=== PATIENT | female | born 1975 | race American Indian/Alaskan Native ===

== ENCOUNTER 2018-03-20 12:29 | Emergency (ER) | payer MEDICAID, OTHER ==
[2018-03-20 12:51] VITALS: RESP 18; TEMP 98.6; O2SAT 100
--- NOTE | 2018-03-20 12:56 | ED PDOC ---
Arrival/HPI - General Chief Complaint: Back Pain Time Seen by Provider: 03/20/18 12:37 Historian: Patient - History of Present Illness Narrative History of Present Illness (Text): 03/20/18 12:49 42 year old female, with no significant past medical history, presents to the emergency department complaining of left-sided upper back pain that began 2 days ago. She states the pain started after extensive house work at home. Patient reports the pain is worse with movement and the pain feels like a spasm at her upper back. Patient reports a one week history of chest pain that, but now reports is relieved. She described the chest pain as a pinching to her chest. Patient denies any history of hypertension, diabetes, or tobacco use. Patient denies any fever, chills, current chest pain, shortness of breath, nausea, vomiting, diarrhea, urinary symptoms, neck pain, weakness, tingling, numbness, headache, dizziness, or any other complaints. Time/Duration: Other (2 days) Symptom Onset: Sudden Symptom Course: Unchanged Quality: Other (spasm) Activities at Onset: Light Context: Home Past Medical History - Provider Review Nursing Documentation Reviewed: Yes - Psychiatric Hx Substance Use: No - Anesthesia Hx Anesthesia: No Hx Anesthesia Reactions: No Hx Malignant Hyperthermia: No Family/Social History - Physician Review Nursing Documentation Reviewed: Yes Family/Social History: No Known Family HX Smoking Status: Former Smoker Hx Alcohol Use: Yes Frequency of alcohol use: Socially Hx Substance Use: No Allergies/Home Meds Allergies/Adverse Reactions: Allergies No Known Allergies Allergy (Verified 03/20/18 12:33) Review of Systems - Physician Review All systems were reviewed & negative as marked: Yes - Review of Systems Constitutional: absent: Fevers, Other (Chills) Respiratory: absent: SOB Cardiovascular: Chest Pain (one week history of chest pinch like pain that has resolved ) Gastrointestinal: absent: Diarrhea, Nausea, Vomiting Genitourinary Female: absent: Dysuria, Frequency, Hematuria Musculoskeletal: Back Pain. absent: Neck Pain Neurological: absent: Headache, Dizziness, Focal Weakness, Other (tingling or numbness) Physical Exam Vital Signs Reviewed: Yes Vital Signs Temp Pulse Resp BP Pulse Ox 03/20/18 16:19 64 18 150/92 H 100 03/20/18 15:29 64 18 142/90 100 03/20/18 12:29 98.6 F 68 18 145/92 H 100 Temperature: Afebrile Blood Pressure: Normal Pulse: Regular Respiratory Rate: Normal Appearance: Positive for: Well-Appearing, Non-Toxic, Comfortable Pain Distress: None Mental Status: Positive for: Alert and Oriented X 3 - Systems Exam Head: Present: Atraumatic, Normocephalic Pupils: Present: PERRL Extroacular Muscles: Present: EOMI Conjunctiva: Present: Normal Mouth: Present: Moist Mucous Membranes Neck: Present: Normal Range of Motion Respiratory/Chest: Present: Clear to Auscultation, Good Air Exchange. No: Respiratory Distress, Accessory Muscle Use Cardiovascular: Present: Regular Rate and Rhythm, Normal S1, S2. No: Murmurs Abdomen: No: Tenderness, Distention, Peritoneal Signs Back: Present: Other (Paraspinal muscle spasm to the left upper back ) Upper Extremity: Present: Normal Inspection. No: Cyanosis, Edema Lower Extremity: Present: Normal Inspection. No: Edema Neurological: Present: GCS=15, CN II-XII Intact, Speech Normal Skin: Present: Warm, Dry, Normal Color. No: Rashes Psychiatric: Present: Alert, Oriented x 3, Normal Insight, Normal Concentration Medical Decision Making ED Course and Treatment: 03/20/18 12:49 Impression: 42 year old female presents complaining of left-sided upper back pain that began 2 days ago after doing extensive house work. Patient also reports one week history of pinch-like chest pain that has currently resolved. Plan: -- Labs -- Chest X-ray -- Toradol, Valium -- POC Urine Test -- Thoracic Spine x-ray -- Reassess and disposition Progress Notes: EKG shows NSR at 70 BPM with normal intervals. No ST changes. Interpreted by me. 03/20/18 14:41 Cxray and thoracic spine xray negative. Trop x 1 negative. D-dimer elevated. Will get CTA PROCEDURE: CT Chest with contrast (Pulmonary Angiogram) Dictator : Richard Pathak MD Report Date : 03/20/2018 15:35:44 IMPRESSION: Unremarkable CT pulmonary angiogram. No pulmonary embolus. No infiltrate, pleural or pericardial effusion or significant lymphadenopathy. 4.5 mm noncalcified solid nodule right upper lobe right lower lobe for which follow-up chest is advised in 12 months. Likely hepatic steatosis. Tiny lucency right lobe liver posteriorly. 03/20/18 15:59 EKG shows NSR at 70bpm with normal intervals and no st changes. She has no cardiac risk factors and primary complaint was back pain. Patient is neurologically intact. Presentation is consistent with musculoskeletal strain. Patient was made aware of CT abnormalities and need to follow-up with PMD 03/20/18 17:36 - Lab Interpretations Lab Results: 03/20/18 13:10 03/20/18 13:10 Lab Results 03/20/18 13:10: Sodium 137, Potassium 3.4 L, Chloride 100, Carbon Dioxide 25, Anion Gap 15, BUN 3 L, Creatinine 0.5 L, Est GFR ( Amer) > 60, Est GFR ( Non-Af Amer) > 60, Random Glucose 89, Calcium 9.2, Total Bilirubin 1.5 H, AST 109 H, ALT 32, Alkaline Phosphatase 123, Troponin I < 0.01, NT-Pro-B Natriuret Pep 156, Total Protein 8.3, Albumin 4.0, Globulin 4.2, Albumin/Globulin Ratio 0.9 L 03/20/18 13:10: D-Dimer, Quantitative 823 H 03/20/18 13:10: WBC 5.3, RBC 3.66, Hgb 12.0, Hct 34.5 L, MCV 94.3, MCH 32.8, MCHC 34.8, RDW 14.9 H, Plt Count 71 L, MPV 11.0, Gran % 52.9, Lymph % (Auto) 31.0, Butler % (Auto) 14.9 H, Eos % (Auto) 0.6 L, Baso % (Auto) 0.6, Gran # 2.78, Lymph # (Auto) 1.6, Butler # (Auto) 0.8 H, Eos # (Auto) 0.0, Baso # (Auto) 0.03 I have reviewed the lab results: Yes - RAD Interpretation Radiology Orders: 03/20/18 12:41 THORACIC SPINE [DORSAL (THORACIC) SPINE] [RAD] Stat 03/20/18 12:46 CHEST ONE VIEW [RAD] Stat 03/20/18 13:36 ANGIO CHEST PE PROTOCOL [CT] Stat - EKG Interpretation Interpreted by ED Physician: Yes Type: 12 lead EKG - Medication Orders Current Medication Orders: Discontinued Medications Diazepam (Valium) 5 mg PO STAT STA PRN Reason: Protocol Stop: 03/20/18 13:46 Last Admin: 03/20/18 13:57 Dose: 5 mg - Bradibe Statement The provider has reviewed the documentation as recorded by the Sonal Guerrero Provider Sonal Attestation: All medical record entries made by the Sonal were at my direction and personally dictated by me. I have reviewed the chart and agree that the record accurately reflects my personal performance of the history, physical exam, medical decision making, and the department course for this patient. I have also personally directed, reviewed, and agree with the discharge instructions and disposition. Disposition/Present on Arrival - Present on Arrival Any Indicators Present on Arrival: No History of DVT/PE: No History of Uncontrolled Diabetes: No Urinary Catheter: No History of Decub. Ulcer: No History Surgical Site Infection Following: None - Disposition Have Diagnosis and Disposition been Completed?: Yes Diagnosis: Back pain, Pulmonary nodule, Liver mass Disposition: HOME/ ROUTINE Disposition Time: 16:00 Patient Plan: Discharge Condition: GOOD Discharge Instructions (ExitCare): Upper Back Pain, Pulmonary Nodule Additional Instructions: Follow-up with PMD within 2 days. Take flexeril for pain. Return to ED if condition worsens. You must get follow-up for your pulmonary nodule. You must follow-up for liver lucency Prescriptions: Cyclobenzaprine [Flexeril] 5 mg PO TID #20 tab Forms: [employer] (Setswana)
[2018-03-20 13:20] LABS: BASO # 0.03 K/mm3 (0.0-2.0); BASO % 0.6 % (0.0-3.0); EOS % 0.6 % (1.5-5.0); GRAN # 2.78 (1.4-6.5); GRAN % 52.9 % (50.0-68.0); LYMPH # 1.6 (1.2-3.4); MEAN CELL VOLUME 94.3 fl (80.0-105.0); MEAN CORPUSCULAR HEMOGLOBIN 32.8 pg (25.0-35.0); MEAN CORPUSCULAR HGB CONC 34.8 g/dl (31.0-37.0); MONO # 0.8 (0.1-0.6); MONO % 14.9 % (1.0-6.0); RBC 3.66 10^6/uL (3.5-6.1); RED CELL DISTRIBUTION WIDTH 14.9 % (11.5-14.5); WHITE BLOOD COUNT 5.3 10^3/ul (4.5-11.0)
[2018-03-20 13:29] LABS: ALB/GLOB RATIO 0.9 (1.1-1.8); ALT/SGPT 32 U/L (7-56); AST/SGOT 109 U/L (14-36); BLOOD UREA NITROGEN 3 mg/dL (7-21); CALCIUM 9.2 mg/dL (8.4-10.5); GFR NON-AFRICAN AMERICAN > 60
[2018-03-20 13:40] LABS: B-TYPE NATRIURETIC PEPTIDE 156 pg/mL (0-450); TROPONIN I < 0.01 ng/mL
[2018-03-20] MEDS ORDERED: Iohexol 350 MG/100 ML VIAL ONE (13:56)
--- NOTE | 2018-03-20 14:41 | RAD ---
Date of service: 03/20/2018 PROCEDURE: CHEST RADIOGRAPH, 1 VIEW HISTORY: chest pain COMPARISON: None available. FINDINGS: LUNGS: Clear. PLEURA: No pneumothorax or pleural fluid seen. CARDIOVASCULAR: Normal. OSSEOUS STRUCTURES: No significant abnormalities. VISUALIZED UPPER ABDOMEN: Normal. OTHER FINDINGS: None. IMPRESSION: No active disease.
--- NOTE | 2018-03-20 14:42 | RAD ---
Date of service: 03/20/2018 HISTORY: back pain COMPARISON: No prior. FINDINGS: BONES: Alignment maintained. No fracture. DISC SPACES: Normal. SOFT TISSUES: Normal. OTHER FINDINGS: None. IMPRESSION: Normal radiographs of the thoracic spine.
[2018-03-20 15:30] VITALS: PULSE 64
--- NOTE | 2018-03-20 15:37 | CT ---
Date of service: 03/20/2018 PROCEDURE: CT Chest with contrast (Pulmonary Angiogram) HISTORY: back and chest pain COMPARISON: None available. TECHNIQUE: Axial computed tomography images were obtained of the chest in the pulmonary arterial phase of enhancement. Coronal and sagittal reformatted images were created and reviewed. Intravenous contrast dose: Omnipaque 350, 100 cc Radiation dose: Total exam DLP = 181.48 mGy-cm. This CT exam was performed using one or more of the following dose reduction techniques: Automated exposure control, adjustment of the mA and/or kV according to patient size, and/or use of iterative reconstruction technique. FINDINGS: PULMONARY ARTERIES: Unremarkable. No pulmonary embolism. AORTA: No acute findings. No thoracic aortic aneurysm. LUNGS: No infiltrate or central airway lesion identified throughout. 4.5 mm noncalcified solid nodule right lower lobe image 137 series 3. Potential subpleural nodule 4 mm in image 142 though this may represent limited atelectasis. PLEURAL SPACES: Unremarkable. No effusion or pneumothorax. HEART: Unremarkable. No cardiomegaly. No significant pericardial effusion. LYMPH NODES: No lymphadenopathy. BONES, CHEST WALL: Unremarkable. No fracture or destructive lesion OTHER FINDINGS: Likely hepatic steatosis. Tiny lucency right lobe liver posteriorly. IMPRESSION: Unremarkable CT pulmonary angiogram. No pulmonary embolus. No infiltrate, pleural or pericardial effusion or significant lymphadenopathy. 4.5 mm noncalcified solid nodule right upper lobe right lower lobe for which follow-up chest is advised in 12 months. Likely hepatic steatosis. Tiny lucency right lobe liver posteriorly.
--- NOTE | 2018-03-20 16:01 | CARD ---
APPROVED REPORT Date of service: 03/20/2018 EKG Measurement Heart [id number] <Conclusion> Normal sinus rhythm Normal ECG
[2018-03-20 16:20] VITALS: BP 150/92
== END 2018-03-20 16:29 | disposition home or self-care (01) ==
LOC: ED 12:29
DX: M54.6 Pain in thoracic spine (principal); R91.8 Other nonspecific abnormal finding of lung field; R16.0 Hepatomegaly, not elsewhere classified
CPT/HCPCS: 71045; 71275; 72070; 80053; 83880; 84484; 85025; 85378; 93005; 99284; Q9967